=== PATIENT | male | born 1955 | race American Indian/Alaskan Native ===

== ENCOUNTER 2017-02-16 00:27 | Emergency (ER) | payer MEDICARE ==
--- NOTE | 2017-02-16 01:05 | Emergency Department Report ---
HPI - General Chief Complaint: Extremity Injury, Upper Time Seen by Provider: 02/16/17 01:02 - HPI HPI: This is a 61-year-old Afro-[place]ian male presents to the emergency department by EMS from home with complaint of a bleeding dialysis fistula. The patient gets dialysis on Saturday, and Saturday. He had no problem after dialysis on , which she went to, but then woke up tonight in a "pool of blood" with the fistula bleeding. It apparently was shooting blood out and EMS put his arm into a large tourniquet. Patient started complaining of right arm pain, numbness once he got to the emergency department due to the tightness of the tourniquet. His sod cutter is Dr. Beltran. His fistula was done at the [facility] He did not take anything for symptoms prior to presentation. He is not on any blood thinners. ED Past Medical Hx - Past Medical History Previous Medical History?: Yes Additional medical history: Dialysis to right arm - Social History Smoking Status: Never Smoker Substance Use Type: None ED Review of Systems ROS: Stated complaint: SHUNT BUSTED Other details as noted in HPI Comment: All other systems reviewed and negative Constitutional: denies: chills, fever Eyes: denies: eye pain, eye discharge, vision change ENT: denies: ear pain, throat pain Respiratory: denies: cough, shortness of breath, wheezing Cardiovascular: denies: chest pain, palpitations Gastrointestinal: denies: abdominal pain, nausea, diarrhea Genitourinary: denies: urgency, dysuria Musculoskeletal: denies: back pain, joint swelling Skin: denies: rash, lesions Neurological: denies: headache, weakness Physical Exam - Physical Exam Vital Signs: Vital Signs 02/16/17 02/16/17 00:44 00:47 Temperature 98.0 F Pulse Rate 103 H 88 Respiratory 22 16 Rate Blood Pressure 122/84 Blood Pressure 117/81 [Left] O2 Sat by Pulse 100 98 Oximetry Physical Exam: GENERAL: The patient is well-developed well-nourished. HEENT: Normocephalic. Atraumatic. Extraocular motions are intact. Patient has moist mucous membranes. Pupils equal reactive to light bilaterally. NECK: Supple. Trachea is midline. CHEST/LUNGS: Clear to auscultation. There is no respiratory distress noted. HEART/CARDIOVASCULAR: Regular. There is no tachycardia. There is no gallop rub or murmur. ABDOMEN: Abdomen is soft, nontender. Patient has normal bowel sounds. There is no abdominal distention. SKIN: Skin is warm and dry. NEURO: The patient is awake, alert, and oriented. The patient is cooperative. The patient has no focal neurologic deficits. The patient has normal speech. MUSCULOSKELETAL: Patient has tenderness to the right upper extremity but is not reproducible to palpation. There is no palpable right-sided radial pulse but it is found with pencil Doppler. Unable to visualize or palpate the right upper extremity dialysis fistula secondary to multiple tight wrappings and tourniquets. ED Course Vital Signs 02/16/17 02/16/17 00:44 00:47 Temperature 98.0 F Pulse Rate 103 H 88 Respiratory 22 16 Rate Blood Pressure 122/84 Blood Pressure 117/81 [Left] O2 Sat by Pulse 100 98 Oximetry - Reevaluation(s) Reevaluation #1: With the tourniquet and wraps were taken off the patient did have some pulsatile venous blood from the fistula. We cover that with some gauze to stop the bleeding. Once the tourniquet was removed however, the patient received blood flow back to the distal hand and arm. He had a palpable radial pulse, good cap refill and the patient's pain completely resolved. We then put a less intense wrap around the bleeding fistula. 02/16/17 06:07 ED Medical Decision Making - Lab Data Result diagrams: 02/16/17 01:13 02/16/17 01:13 - Medical Decision Making 61-year-old male presents with the complaint of waking up with a bleeding dialysis fistula. EMS put a very tight wrap and tourniquet which did stop the bleeding but cut off the circulation to the distal hand and was causing him pain and we did not have a palpable radial pulse at that time. Once the tourniquet was removed, the patient still did have some bleeding from the fistula but the pain resolved and the pulse was once again palpable and the patient had full range of motion of his hand and arm. We checked some labs and there was no significant coagulopathy or blood thinning. The rest the patient' s labs are mostly unremarkable other than the renal insufficiency but the patient is dialysis dependent. We put another wrap around the arm and watch the patient for another few hours. At that point the fistula was rechecked and there was no further bleeding and has started to clot. The patient was given another dressing with some Surgicel over the area where he was having bleeding. Vital signs stable throughout his ED course. Patient has no residual pain and has shown to be neurovascularly intact. He appears safe for discharge home. He will continue with his dialysis regimen and has been encouraged to follow up as soon as possible with the access Center. He will return to the ER with any return of his bleeding or any acute distress. Critical Care Time: No Critical care attestation.: If time is entered above; I have spent that time in minutes in the direct care of this critically ill patient, excluding procedure time. ED Disposition Clinical Impression: Bleeding from dialysis shunt Qualifiers: Encounter type: initial encounter Qualified Code(s): T82.838A - Hemorrhage due to vascular prosthetic devices, implants and grafts, initial encounter Chronic kidney disease (CKD) Qualifiers: Chronic kidney disease stage: stage 5 Qualified Code(s): N18.5 - Chronic kidney disease, stage 5 Disposition: DISCHARGED TO HOME OR SELFCARE Is pt being admited?: No Condition: Stable Instructions: End-Stage Kidney Disease (ED) Additional Instructions: You were seen here today for bleeding from her dialysis fistula/shunt. It appears to have stopped with pressure. I would keep the area covered until her next dialysis appointment and it is recommended that she follow-up with the access Center. Return to the emergency department with any return of the bleeding or any acute distress. Continue with your normal dialysis regimen. Referrals: DENA SAINI MD [Staff Physician] - [facility] Time of Disposition: 04:14
[2017-02-16 01:32] LABS: Basophils % (Auto) 0.3 % (0.0-1.8); Eosinophils % (Auto) 7.3 % (0.0-4.3); Hematocrit 31.2 % (35.5-45.6); Hemoglobin 10.1 gm/dl (11.8-15.2); Mean Corpuscular HGB Conc 32 % (32-34); Mean Corpuscular Hemoglobin 35 pg (28-32); Mean Corpuscular Volume 107 fl (84-94); Platelet Count 165 K/mm3 (140-440); Red Blood Count 2.92 M/mm3 (3.65-5.03); Red Cell Distribution Width 13.9 % (13.2-15.2); White Blood Count 9.3 K/mm3 (4.5-11.0)
[2017-02-16 01:45] LABS: INR 0.99 (0.87-1.13)
[2017-02-16 01:51] LABS: BUN/Creatinine Ratio 3.77; Calcium 9.5 mg/dL (8.4-10.2); Chloride 92.9 mmol/L (98-107); Potassium 4.3 mmol/L (3.6-5.0)
[2017-02-16 01:58] LABS: Partial Thromboplastin Time 26.1 Sec. (24.2-36.6)
[2017-02-16 04:08] VITALS: BP 121/66
== END 2017-02-16 04:20 | disposition home or self-care (01) ==
LOC: ED 00:27
DX: T82.838A Hemorrhage due to vascular prosthetic devices, implants and grafts, initial encounter (principal); Y84.1 Kidney dialysis as the cause of abnormal reaction of the patient, or of later complication, without mention of misadventure at the time of the procedure; N18.5 Chronic kidney disease, stage 5
CPT/HCPCS: 36415; 80048; 85025; 85610; 85730; 86850; 86900; 86901; 99284

== ENCOUNTER 2017-02-16 08:01 | Inpatient (IN) | payer MEDICARE ==
--- NOTE | 2017-02-16 10:55 | Emergency Department Report ---
Upper Extremity - [facility] Chief Complaint: Extremity Injury, Upper Stated Complaint: RT ARM BLEEDING Time Seen by Provider: 02/16/17 10:09 ED Review of Systems ROS: Stated complaint: RT ARM BLEEDING Other details as noted in HPI ED Past Medical Hx - Past Medical History Previous Medical History?: Yes Hx Hypertension: Yes Hx Diabetes: Yes Hx Renal Disease: Yes (HD [id number]) Additional medical history: Dialysis to right arm, AV graft - Surgical History Past Surgical History?: Yes Additional Surgical History: AV graft to right arm, Colonoscopy - Social History Smoking Status: Never Smoker Substance Use Type: Prescribed - Medications Home Medications: Home Medications Medication Instructions Recorded Confirmed Last Taken Type Aspirin [Adult Low Dose Aspirin EC] 81 mg PO DAILY 02/16/17 02/16/17 02/15/17 History Calcium Acetate 667 mg PO TID 02/16/17 02/16/17 02/15/17 History Cinacalcet [Sensipar] 30 mg PO QDAY 02/16/17 02/16/17 02/15/17 History Sevelamer Carbonate [Renvela] 1,600 mg PO TID 02/16/17 02/16/17 02/15/17 History Sodium Polystyrene [Kionex] 15 gm PO TID 02/16/17 02/16/17 02/15/17 History Vit B Cplx #11/FA/C/Biot/Zn Ox 1 each PO DAILY 02/16/17 02/16/17 02/15/17 History [Dialyvite with Zinc Tablet] Vitamin D3 1 tab PO DAILY 02/16/17 02/16/17 02/15/17 History Upper Extremity Exam - Exam General: Vital signs noted. No distress. Alert and acting appropriately. ED Course Vital Signs 02/16/17 08:04 Temperature 98.2 F Pulse Rate 93 H Respiratory 18 Rate Blood Pressure 104/68 O2 Sat by Pulse 97 Oximetry Critical care attestation.: If time is entered above; I have spent that time in minutes in the direct care of this critically ill patient, excluding procedure time. ED Disposition Condition: Stable Referrals: PRIMARY CARE, [Primary Care Provider] - 3-5 Days
[2017-02-16 11:28] LABS: Basophils % (Auto) 0.6 % (0.0-1.8); Eosinophils % (Auto) 4.2 % (0.0-4.3); Hematocrit 28.2 % (35.5-45.6); Hemoglobin 9.2 gm/dl (11.8-15.2); Mean Corpuscular HGB Conc 32 % (32-34); Mean Corpuscular Hemoglobin 35 pg (28-32); Mean Corpuscular Volume 108 fl (84-94); Platelet Count 151 K/mm3 (140-440); Red Blood Count 2.62 M/mm3 (3.65-5.03); Red Cell Distribution Width 13.9 % (13.2-15.2); White Blood Count 9.5 K/mm3 (4.5-11.0)
[2017-02-16 11:39] LABS: Albumin/Globulin Ratio 1.2 %; BUN/Creatinine Ratio 4.14; Bilirubin,Total 0.3 mg/dL (0.1-1.2); Calcium 10.2 mg/dL (8.4-10.2); Chloride 96.4 mmol/L (98-107); INR 1.01 (0.87-1.13); Total Protein 7.3 g/dL (6.3-8.2)
[2017-02-16 11:40] LABS: Partial Thromboplastin Time 29.6 Sec. (24.2-36.6)
[2017-02-16 11:47] LABS: Potassium 5.5 mmol/L (3.6-5.0)
--- NOTE | 2017-02-16 12:23 | Emergency Department Report ---
ED Upper Extremity Inj HPI - General Chief Complaint: Extremity Injury, Upper Stated Complaint: RT ARM BLEEDING Time Seen by Provider: 02/16/17 10:09 Source: patient Mode of arrival: Ambulatory Limitations: No Limitations - History of Present Illness Initial Comments: 61-year-old male with a past medical history end-stage renal disease on dialysis , diabetes, and hypertension presents to the hospital complaints of pain to his AV dialysis fistula. She was seen early this morning for the same by Dr. Rhodes at approximately 1 AM. Apparently patient woke up and found that he was bleeding and therefore came to the ER. Compression dressing placed then removal with resolution of bleeding and patient was subsequently discharged home to receive his dialysis in the a.m. Patient went to dialysis at once dressing was removed he had pulsatile bleeding once again and therefore sent to the ER. Patient complains of mild dizziness block captain. Had mild shortness of breath earlier which has since resolved. No pain reported. Pt takes ASA daily but denies other anticoagulant use - Related Data Home Medications Medication Instructions Recorded Confirmed Last Taken Aspirin [Adult Low Dose Aspirin EC] 81 mg PO DAILY 02/16/17 02/16/17 02/15/17 Calcium Acetate 667 mg PO TID 02/16/17 02/16/17 02/15/17 Cinacalcet [Sensipar] 30 mg PO QDAY 02/16/17 02/16/17 02/15/17 Sevelamer Carbonate [Renvela] 1,600 mg PO TID 02/16/17 02/16/17 02/15/17 Sodium Polystyrene [Kionex] 15 gm PO TID 02/16/17 02/16/17 02/15/17 Vit B Cplx #11/FA/C/Biot/Zn Ox 1 each PO DAILY 02/16/17 02/16/17 02/15/17 [Dialyvite with Zinc Tablet] Vitamin D3 1 tab PO DAILY 02/16/17 02/16/17 02/15/17 Allergies Allergy/AdvReac Type Severity Reaction Status Date / Time No Known Allergies Allergy Unverified 02/16/17 01:10 ED Review of Systems ROS: Stated complaint: RT ARM BLEEDING Other details as noted in HPI Comment: All other systems reviewed and negative Other: Constitutional: No fevers chills Eyes: No eye pain visual changes ENT: No ear pain or throat pain Neck: Denies pain Respiratory: Denies cough wheezing Cardiovascular: Denies chest pain, palpitations, syncope GI: Denies abdominal pain, nausea, vomiting, diarrhea : Denies dysuria Musculoskeletal: Denies back pain Skin: Denies rash, lesions, erythema Neurologic: Denies headache, numbness, weakness Psychiatric: Denies suicidal ideation, hallucinations ED Past Medical Hx - Past Medical History Previous Medical History?: Yes Hx Hypertension: Yes Hx Diabetes: Yes Hx Renal Disease: Yes (HD [id number]) Additional medical history: Dialysis to right arm, AV graft - Surgical History Past Surgical History?: Yes Additional Surgical History: AV graft to right arm, Colonoscopy - Social History Smoking Status: Never Smoker Substance Use Type: Prescribed - Medications Home Medications: Home Medications Medication Instructions Recorded Confirmed Last Taken Type Aspirin [Adult Low Dose Aspirin EC] 81 mg PO DAILY 02/16/17 02/16/17 02/15/17 History Calcium Acetate 667 mg PO TID 02/16/17 02/16/17 02/15/17 History Cinacalcet [Sensipar] 30 mg PO QDAY 02/16/17 02/16/17 02/15/17 History Sevelamer Carbonate [Renvela] 1,600 mg PO TID 02/16/17 02/16/17 02/15/17 History Sodium Polystyrene [Kionex] 15 gm PO TID 02/16/17 02/16/17 02/15/17 History Vit B Cplx #11/FA/C/Biot/Zn Ox 1 each PO DAILY 02/16/17 02/16/17 02/15/17 History [Dialyvite with Zinc Tablet] Vitamin D3 1 tab PO DAILY 02/16/17 02/16/17 02/15/17 History ED Physical Exam - General Limitations: No Limitations - Other Other exam information: General: No limitations, patient is alert in no acute distress Head exam: Atraumatic, normocephalic Eyes exam: Normal appearance ENT: Moist mucous membrane, normal oropharynx Neck exam: Normal inspection, full range of motion Respiratory exam: Clear to auscultation bilateral, no wheezes, rales, crackles Cardiovascular: Normal rate and rhythm, normal heart sounds Abdomen: Soft, nondistended, and nontender, with normal bowel sounds, no rebound, or guarding Extremity: Full range of motion normal inspection no deformity. Right arm with compressive dressing intact without any signs of active bleeding. 2+ distal radial pulse. Back: Normal Inspection, full range of motion, no tenderness Neurologic: Alert, oriented x3, cranial nerves intact, no motor or sensory deficit Psychiatric: normal affect, normal mood Skin: Warm, dry, intact ED Course Vital Signs 02/16/17 08:04 Temperature 98.2 F Pulse Rate 93 H Respiratory 18 Rate Blood Pressure 104/68 O2 Sat by Pulse 97 Oximetry - Consultations Consultation #1: 02/16/17 11:[address] Arce manager animation vascular surgeon. He agrees with no signs of active bleeding dressing does not need to be removed in the ED. He will arrange for fistula graft in the morning unless patient needs emergent dialysis Consultation #2: 02/16/17 12:[address] Florence red hat engineer. He recommends Kayexalate for hyperkalemia. Will arrange for dialysis once access at ED Medical Decision Making - Lab Data Result diagrams: 02/16/17 11:23 02/16/17 11:23 Lab Results 02/16/17 02/16/17 02/16/17 Range/Units 08:20 11:23 11:23 WBC 9.5 (4.5-11.0) K/mm3 RBC 2.62 L (3.65-5.03) M/mm3 Hgb 9.2 L (11.8-15.2) gm/dl Hct 28.2 L (35.5-45.6) % MCV 108 H (84-94) fl MCH 35 H (28-32) pg MCHC 32 (32-34) % RDW 13.9 (13.2-15.2) % Plt Count 151 (140-440) K/mm3 Lymph % (Auto) 9.8 L (13.4-35.0) % [place] % (Auto) 5.8 (0.0-7.3) % Eos % (Auto) 4.2 (0.0-4.3) % Baso % (Auto) 0.6 (0.0-1.8) % Lymph # 0.9 L (1.2-5.4) K/mm3 [place] # 0.6 (0.0-0.8) K/mm3 Eos # 0.4 (0.0-0.4) K/mm3 Baso # 0.1 (0.0-0.1) K/mm3 Seg Neutrophils % 79.6 H (40.0-70.0) % Seg Neutrophils # 7.5 (1.8-7.7) K/mm3 PT 13.2 (12.2-14.9) Sec. INR 1.01 (0.87-1.13) APTT 29.6 (24.2-36.6) Sec. Sodium (137-145) mmol/L Potassium (3.6-5.0) mmol/L Chloride (98-107) mmol/L Carbon Dioxide (22-30) mmol/L Anion Gap mmol/L BUN (9-20) mg/dL Creatinine (0.8-1.5) mg/dL Estimated GFR ml/min BUN/Creatinine Ratio % Glucose (75-100) mg/dL Calcium (8.4-10.2) mg/dL Total Bilirubin (0.1-1.2) mg/dL AST (5-40) units/L ALT (7-56) units/L Alkaline Phosphatase (35-129) units/L Total Protein (6.3-8.2) g/dL Albumin (3.9-5) g/dL Albumin/Globulin Ratio % Blood Type O POSITIVE Antibody Screen TNR MARTIN Antibody Screen Negative 02/16/17 Range/Units 11:23 WBC (4.5-11.0) K/mm3 RBC (3.65-5.03) M/mm3 Hgb (11.8-15.2) gm/dl Hct (35.5-45.6) % MCV (84-94) fl MCH (28-32) pg MCHC (32-34) % RDW (13.2-15.2) % Plt Count (140-440) K/mm3 Lymph % (Auto) (13.4-35.0) % [place] % (Auto) (0.0-7.3) % Eos % (Auto) (0.0-4.3) % Baso % (Auto) (0.0-1.8) % Lymph # (1.2-5.4) K/mm3 [place] # (0.0-0.8) K/mm3 Eos # (0.0-0.4) K/mm3 Baso # (0.0-0.1) K/mm3 Seg Neutrophils % (40.0-70.0) % Seg Neutrophils # (1.8-7.7) K/mm3 PT (12.2-14.9) Sec. INR (0.87-1.13) APTT (24.2-36.6) Sec. Sodium 139 (137-145) mmol/L Potassium 5.5 H D (3.6-5.0) mmol/L Chloride 96.4 L (98-107) mmol/L Carbon Dioxide 23 (22-30) mmol/L Anion Gap 25 mmol/L BUN 63 H (9-20) mg/dL Creatinine 15.2 H (0.8-1.5) mg/dL Estimated GFR 4 ml/min BUN/Creatinine Ratio 4.14 % Glucose 108 H (75-100) mg/dL Calcium 10.2 (8.4-10.2) mg/dL Total Bilirubin 0.30 (0.1-1.2) mg/dL AST 15 (5-40) units/L ALT 12 (7-56) units/L Alkaline Phosphatase 41 (35-129) units/L Total Protein 7.3 (6.3-8.2) g/dL Albumin 4.0 (3.9-5) g/dL Albumin/Globulin Ratio 1.2 % Blood Type Antibody Screen MARTIN Antibody Screen - Medical Decision Making Patient has fairly stable hemoglobin and does not require blood transfusion. Vital signs stable. No signs of fluid overload. This relates initiated for hyperkalemia. Nephrology and vascular surgery has been consulted. Patient requires admission for fistulogram and subsequent dialysis. - Differential Diagnosis anemia, coagulopathy, hyperkalemia, volume overload, bleeding fistula Critical Care Time: No Critical care attestation.: If time is entered above; I have spent that time in minutes in the direct care of this critically ill patient, excluding procedure time. ED Disposition Clinical Impression: Bleeding from dialysis shunt, ESRD (end stage renal disease) on dialysis, Hyperkalemia Disposition: OP ADMITTED IP TO THIS HOSP Is pt being admited?: Yes Condition: Stable Time of Disposition: 12:22 (Dr Gary/hosp)
--- NOTE | 2017-02-16 12:23 | History and Physical Report ---
History of Present Illness Chief complaint: My arm is bleeding History of present illness: 61 YO Male with ESRD on HD(T,R,Sa), HTN, DM presents to ED for evaluation. Pt states that he has experienced bleeding and pain at his RUE AV fistula site for the past 2 days with worsening symptoms over the past 8 hours. PT awoke from sleep and found that his arm was bleeding and presented to ED for evaluation. At time of evaluation, bleeding had resolved. Bleeding recurred hence the reason for representation. Pt states that bleeding is pulsatile, and associated with dizziness. Pt denies fever, chills, CP, Palpitations, muscle cramping, syncope, NVD, BRBPR, hematemesis, hematuria, or trauma. Pt last dialyzed on , Dry weight is 110kg, dialysis time 4 hours. Past History Past Medical History: diabetes, ESRD, hypertension, renal failure Past Surgical History: Other (RUE AVF, Colonoscopy) Social history: . denies: smoking, alcohol abuse, prescription drug abuse Family history: diabetes, hypertension Medications and Allergies Allergies Allergy/AdvReac Type Severity Reaction Status Date / Time No Known Allergies Allergy Unverified 02/16/17 01:10 Home Medications Medication Instructions Recorded Confirmed Last Taken Type Aspirin [Adult Low Dose Aspirin EC] 81 mg PO DAILY 02/16/17 02/16/17 02/15/17 History Calcium Acetate 667 mg PO TID 02/16/17 02/16/17 02/15/17 History Cinacalcet [Sensipar] 30 mg PO QDAY 02/16/17 02/16/17 02/15/17 History Sevelamer Carbonate [Renvela] 1,600 mg PO TID 02/16/17 02/16/17 02/15/17 History Sodium Polystyrene [Kionex] 15 gm PO TID 02/16/17 02/16/17 02/15/17 History Vit B Cplx #11/FA/C/Biot/Zn Ox 1 each PO DAILY 02/16/17 02/16/17 02/15/17 History [Dialyvite with Zinc Tablet] Vitamin D3 1 tab PO DAILY 02/16/17 02/16/17 02/15/17 History Review of Systems All systems: negative Constitutional: other (bleeding/pain from AVF ) Exam - Constitutional Vitals: Temp Pulse Resp BP Pulse Ox 98.2 F 93 H 18 104/68 97 02/16/17 08:04 02/16/17 08:04 02/16/17 08:04 02/16/17 08:04 02/16/17 08:04 General appearance: Present: no acute distress, well-nourished - EENT Eyes: Present: PERRL ENT: hearing intact, clear oral mucosa - Neck Neck: Present: supple, normal ROM - Respiratory Respiratory effort: normal Respiratory: bilateral: CTA - Cardiovascular Heart Sounds: Present: S1 & S2. Absent: rub, click - Extremities Extremities: pulses symmetrical (RUE dressing CDI, distal pulses intact, and equal bilaterally), No edema Peripheral Pulses: within normal limits - Abdominal General gastrointestinal: Present: soft, non-tender, non-distended, normal bowel sounds Male genitourinary: Present: normal - Integumentary Integumentary: Present: clear, warm, dry - Musculoskeletal Musculoskeletal: gait normal, strength equal bilaterally - Psychiatric Psychiatric: appropriate mood/affect, intact judgment & insight - Neurologic Neurologic: CNII-XII intact, moves all extremities Results - Labs CBC & Chem 7: 02/16/17 11:23 02/16/17 11:23 Labs: Abnormal lab results 02/16/17 02/16/17 Range/Units 11:23 11:23 RBC 2.62 L (3.65-5.03) M/mm3 Hgb 9.2 L (11.8-15.2) gm/dl Hct 28.2 L (35.5-45.6) % MCV 108 H (84-94) fl MCH 35 H (28-32) pg Lymph % (Auto) 9.8 L (13.4-35.0) % Lymph # 0.9 L (1.2-5.4) K/mm3 Seg Neutrophils % 79.6 H (40.0-70.0) % Potassium 5.5 H D (3.6-5.0) mmol/L Chloride 96.4 L (98-107) mmol/L BUN 63 H (9-20) mg/dL Creatinine 15.2 H (0.8-1.5) mg/dL Glucose 108 H (75-100) mg/dL Assessment and Plan - Patient Problems (1) Bleeding from dialysis shunt Current Visit: Yes Status: Acute Qualifiers: Encounter type: E Plan to address problem: IR consulted in ED, Pending fistulagram in AM, (2) Diabetes Current Visit: Yes Status: Acute Qualifiers: Diabetes mellitus type: D Diabetes mellitus complication status: D Diabetes mellitus complication detail: D Diabetic retinopathy severity: D Proliferative retinopathy type: P Diabetes mellitus macular edema: D Diabetes mellitus nitroglycerin supervisor insulin use: D Laterality: L Chronic kidney disease stage: C Plan to address problem: ADA diet, insulin, accu check (3) Metabolic syndrome Current Visit: Yes Status: Acute Plan to address problem: Pt counseled, balanced diet, increased physical activity (4) ESRD (end stage renal disease) on dialysis Current Visit: Yes Status: Acute Plan to address problem: Nephrology consulted in ED, Dialysis as per renal team. (5) Hyperkalemia Current Visit: Yes Status: Acute Plan to address problem: scheduled kayexelate, repeat bmp in am (6) Chronic kidney disease (CKD) Current Visit: No Status: Acute Qualifiers: Chronic kidney disease stage: stage 5 Qualified Code(s): N18.5 - Chronic kidney disease, stage 5 Plan to address problem: Stable, Nephrology consulted, resume home medication. (7) DVT prophylaxis Current Visit: Yes Status: Acute
[2017-02-16] MEDS ORDERED: KIONEX PO ONE (12:32)
[2017-02-16] MEDS ORDERED: DUONEB 0.5 MG-3 MG/3 ML SOLN IH PRN (12:42)
[2017-02-16] MEDS ORDERED: TYLENOL PO PRN (12:42)
[2017-02-16] MEDS ORDERED: ZOFRAN IV PRN (12:42)
[2017-02-16] MEDS ORDERED: PROVENTIL IH PRN (12:46)
[2017-02-16] MEDS ORDERED: KIONEX ONE (13:50)
[2017-02-16] MEDS: KIONEX PO SCH ×2 (13:58→22:15)
--- NOTE | 2017-02-16 16:06 | Admit Criteria Form ---
Admission Criteria Documentation: RENAL FAILURE, CHRONIC Clinical Indications for Admission to Inpatient Care (Place 'X' for any and all applicable criteria): Admission is indicated for ANY ONE of the following (1)(2)(3)(4)(5): [X ]I. Inpatient admission required rather than observation care (Use Renal Failure, Chronic: Observation Care Criteria as appropriate) because of ANY ONE of the following: [ ]a) Volume overload or uremic symptoms (eg, clinically significant pulmonary edema, hypertension, pericarditis, acidosis) too severe for, or not responsive (eg, for over 24 hours) to emergency department or observation care dialysis or treatment regimen (11) [ ]b) Hemodynamic instability that is severe or persistent [ ]c) Respiratory distress that is severe or persistent (11) [X ]d) Clinically significant electrolyte abnormality that requires inpatient care (eg,hyperkalemia with severe ECG findings)[B] [ ]e) Supplement O2 or respiratory therapy for over 24hrs that is performable only in acute inpatient setting [ ]f) Continuous IV infusion of anticoagulation, platelet inhibitor, vasoactive, or Antiarrhythmic medication (15), [ ]g) Pulmonary artery catheter monitoring [ ]h) Temporary pacemaker placement [ ]i) Emergent pericardiocentesis [ ]j) Other condition, treatment or monitoring requiring inpatient admission [ ]II. Unexplained syncope [A] [ ]III. Recurrent seizures [ ]IV. Severe infections not treatable in outpatient setting (eg, peritonitis)(9 ) [ ]V. Cardiac arrhythmias of immediate concern [ ]. Encephalopathy [ ]VII.Bleeding abnormalities (eg, platelet dysfunction) with active (eg, gastrointestinal) bleeding Extended stay beyond goal length of stay may be needed for (3)(4)(35)(36): [ ]a) Continuing uremic complications [ ]b) Comorbidities or complications The original [employer] content created by [employer] has been revised. The portions of the content which have been revised are identified through the use of italic text or in bold, and [facility] has neither reviewed nor approved the modified material. All other unmodified content is copyright [employer] Please see references footnoted in the original [facility] edition 2016 Admission Criteria Met: Yes
--- NOTE | 2017-02-16 16:08 | Consultation ---
History of Present Illness - Reason for Consult Consult date: 02/16/17 bleeding fistula - History of Present Illness Pt with a RUE brachiocephalic fistula placed 7 years ago. No significant interventiopns. Presents with persistant bleeding from 1.5 cm erosion at site of prior buttonhole. Fistula now thrombosed secondary to external compression. Past History Past Medical History: diabetes, ESRD, hypertension, renal failure Past Surgical History: Other (RUE AVF, Colonoscopy) Social history: . denies: smoking, alcohol abuse, prescription drug abuse Family history: diabetes, hypertension Medications and Allergies Allergies Allergy/AdvReac Type Severity Reaction Status Date / Time No Known Allergies Allergy Unverified 02/16/17 01:10 Home Medications Medication Instructions Recorded Confirmed Last Taken Type Aspirin [Adult Low Dose Aspirin EC] 81 mg PO DAILY 02/16/17 02/16/17 02/15/17 History Calcium Acetate 667 mg PO TID 02/16/17 02/16/17 02/15/17 History Cinacalcet [Sensipar] 30 mg PO QDAY 02/16/17 02/16/17 02/15/17 History Sevelamer Carbonate [Renvela] 1,600 mg PO TID 02/16/17 02/16/17 02/15/17 History Sodium Polystyrene [Kionex] 15 gm PO TID 02/16/17 02/16/17 02/15/17 History Vit B Cplx #11/FA/C/Biot/Zn Ox 1 each PO DAILY 02/16/17 02/16/17 02/15/17 History [Dialyvite with Zinc Tablet] Vitamin D3 1 tab PO DAILY 02/16/17 02/16/17 02/15/17 History Active Meds: Active Medications Acetaminophen (Tylenol) 650 mg PO Q4H PRN PRN Reason: Pain MILD(1-3)/Fever >100.5/BUNCH Albuterol (Proventil) 2.5 mg IH Q4HRT PRN PRN Reason: Shortness Of Breath Calcium Acetate (Phoslo) 667 mg PO TID [facility] Cholecalciferol (Vitamin D3) 2,000 unit PO QDAY [facility] Cinacalcet (Sensipar) 30 mg PO QDAY [facility] Multivit/Ca Carb/B Cmplx/FA/Prenat (Renal Caps) 1 cap PO QDAY [facility] Ondansetron HCl (Zofran) 4 mg IV Q8H PRN PRN Reason: N/V unrelieved by Reglan Sevelamer Carbonate (Renvela) 1,600 mg PO TID [facility] Sodium Polystyrene Sulfonate (Kionex) 15 gm PO TID [facility] Last Admin: 02/16/17 13:58 Dose: 15 gm Review of Systems All systems: negative Exam - Constitutional Vitals: Temp Pulse Resp BP Pulse Ox 98.2 F 93 H 18 111/71 100 02/16/17 08:04 02/16/17 08:04 02/16/17 14:01 02/16/17 12:01 02/16/17 14:01 General appearance: Present: no acute distress - EENT Eyes: Present: PERRL, EOM intact ENT: hearing intact - Neck Neck: Present: supple, normal ROM - Respiratory Respiratory effort: normal - Extremities Extremities: abnormal (per HPI) - Abdominal General gastrointestinal: Present: deferred Male genitourinary: Present: deferred - Rectal Rectal Exam: deferred - Psychiatric Psychiatric: appropriate mood/affect, cooperative Results - Labs CBC & Chem 7: 02/16/17 11:23 02/16/17 11:23 Assessment and Plan Pt will need permcath tomorrow and dialysis to follow. He will need a new nursing home dialysis access versus revision.
[2017-02-16] MEDS: PHOSLO PO SCH ×2 (18:45→22:15)
[2017-02-16] MEDS: RENVELA PO SCH ×2 (18:45→22:14)
[2017-02-17] MEDS ORDERED: XYLOCAINE 2% INFILTRATI ONE (09:26)
[2017-02-17] MEDS ORDERED: ANCEF/STERILE WATER 2 GM/20 ML 2 GM/20 ML SYRINGE IV ONE (09:26)
[2017-02-17] MEDS ORDERED: HEPARIN/NS 5000 UNIT/500ML(CATH LAB) 1,000 ML IR ONE (09:26)
[2017-02-17] MEDS ORDERED: NACL 0.9% 250ML 250 ML ONE (09:28)
--- NOTE | 2017-02-17 09:58 | Progress Note ---
Assessment and Plan 61 YO Male with ESRD on HD(T,R,Sa), HTN, DM presents to ED for evaluation. Pt states that he has experienced bleeding and pain at his RUE AV fistula site for the past 2 days with worsening symptoms over the past 8 hours before admission. PT awoke from sleep and found that his arm was bleeding and presented to ED for evaluation. Bleeding from dialysis shunt - Vascular consulted in ED, - Patient is undergoing fistulogram and mechanical thrombectomy as well as surgical closure of his bleeding site. - The patient will be scheduled outpt for placement of an interposition graft next week. Diabetes type 2 - cont insulin, accu check ESRD (end stage renal disease) on dialysis - Nephrology consulted in ED, - Dialysis planned after the procedure today Hyperkalemia - scheduled kayexelate, - K 6.1 today - will give NaHCO3, insulin with D50 - check level after HD DVT prophylaxis - SCD for active bleeding Subjective Date of service: 02/17/17 Interval history: Patient seen and examined at the vascular carpenter labor supervisor. Medical records and medication list reviewed. No acute event overnight noted by the RN. Patient denies any chest pain or difficulty breathing. Discussed plan of care at bedside with patient. Objective - Exam Narrative Exam: GENERAL: well-developed and well-nourished AAM lying on bed appeared to be in no discomfort. HEENT: Normocephalic. Atraumatic. No conjunctival congestion or icterus. Patient has moist mucous membranes. NECK: Supple. Trachea midline. CHEST/LUNGS: Clear to auscultated bilaterally, breathing nonlabored. No wheezes crackles or rhonchi. HEART/CARDIOVASCULAR: Regular in rate and rhythm. S1 and S2 positive. ABDOMEN: Abdomen is soft, nontender. Patient has normal bowel sounds. SKIN: There is no rash. Warm and dry. NEURO: No focal motor deficit. Follows command. MUSCULOSKELETAL: No joint effusion or tenderness. EXTRIMITY: No edema, no cyanosis or clubbing. AV fistula in his right upper arm. PSYCH: Cooperative. - Constitutional Vitals: Vital Signs - 12hr 02/17/17 02/17/17 02/17/17 00:10 07:10 08:17 Temperature 97.7 F 98.1 F Pulse Rate [ 70 From Monitor] Pulse Rate [ 68 Left] Respiratory 18 20 Rate Blood Pressure 112/71 125/72 [Left Arm] O2 Sat by Pulse 99 90 94 Oximetry - Labs CBC & Chem 7: 02/16/17 11:23 02/17/17 11:53 Labs: Abnormal lab results 02/16/17 Range/Units 15:40 POC Glucose 121 H (70-105)
[2017-02-17] MEDS ORDERED: VITAMIN D3 PO SCH (10:00)
[2017-02-17] MEDS ORDERED: NON-FORMULARY (Vit B Cplx #11/Fa/C/Biot/Zn Ox [Dialyvite With Zinc Tablet] 1 EACH) PO SCH (10:00)
[2017-02-17] MEDS: SUBLIMAZE ONE ×2 (10:01→10:24)
[2017-02-17] MEDS: VERSED ONE ×2 (10:01→11:13)
[2017-02-17] MEDS: HEPARIN 10,000 UNITS/10 ML ONE ×2 (10:24→11:10)
--- NOTE | 2017-02-17 11:36 | Operative Report ---
Operative Report Operative Report: EXAM: RIGHT UPPER EXTREMITY FISTULOGRAM, DECLOT, VENOPLASTY CLINICAL INDICATION: PATIENT WITH THROMBOSED RIGHT UPPER EXTREMITY FISTULA WITH BLEEDING FROM SKIN EXCORIATION AT SITE OF PRIOR BUTTONHOLE DATE: 02/17/2017 PROCEDURE: Following an explanation of the risks, benefits and alternatives; written informed consent was obtained. The patient was brought to the injury graphic suite and placed in supine position on the examination table. Initial evaluation of his right upper arm brachycephalic fistula demonstrated thrombus throughout the fistula. No bleeding was identified at the start of the examination. Patient's right arm was prepped and draped in the usual sterile fashion. 1% lidocaine was used for anesthesia. Accessed towards the venous outflow was obtained using a 7 cm 21-gauge needle under ultrasound guidance. A 0.018 guidewire was advanced centrally and the needle removed. A micro-sheath was then placed in the 0.018 guidewire was exchanged for a 0.035 guidewire was exchanged for a 7 [place] vascular sheath. With the aid of a 4 [place] vertebral catheter, as the 0.035 guidewire was advanced centrally. There appears to be cardiac dysfunction with reflux from the right atrium involving the central veins. Thrombus is present extending from the cephalic vein distally. Venoplasty for thrombus maceration was performed from the central veins to the sheath insertion site using an 8 mm balloon. The vertebral catheter was again advanced over the guidewire and pullback venography performed to the sheath. As demonstrated residual thrombus throughout the fistula. Mechanical thrombectomy was then performed using a Trerotola mechanical thrombectomy device through the venous sheath to the shoulder. Accessed towards the arterial anastomosis was obtained in a similar fashion as above and a 6 [place] sheath directed towards the arterial anastomosis. A 4 [place] vertebral catheter and 0.035 guidewire were then advanced through the arterial anastomosis entered into the brachial artery. Contrast injected through the vertebral catheter demonstrated thrombus filling the fistula from the AV anastomosis to the sheath insertion site. The graft was then swept using a 5.5 [place] Kuldeep balloon over the guidewire. At this point, the fistula regained flow and the patient began to bleed at the site of the skin excoriation. Balloon tamp an odd was performed sequentially using an 8 mm, 10 mm and 12 mm balloon without cessation of flow. The 12 mm balloon insufflated to slow the bleeding, the skin excoriation was approximated using 2-0 interrupted Ethilon suture. At this point, the bleeding stopped. Additional mechanical thrombectomy was then performed through the venous sheath. Venography demonstrated no stenosis at the her chart arterial anastomosis. There is 60-70% stenosis in the distal cephalic vein. Angioplasty of this stenosis was then performed using the 8 mm balloon insufflated 14 juvenal for 30 seconds. Post angioplasty imaging demonstrated reduction of the stenosis to 20%. At this point, brisk flow in a palpable thrill is present throughout the fistula. Both she's were removed and hemostasis achieved using 3-0 Vicryl suture. Dermabond was applied to the sheath insertion sites as well as the site of the skin excoriation. The patient tolerated the procedure well. There were no immediate post procedure competitions. Conscious sedation was performed under the guidance of radiologic nursing. Continuous cardiopulmonary monitoring was utilized. IMPRESSION: 1) Right upper extremity fistulogram demonstrating thrombus throughout the patient's right upper arm fistula. 60-70% stenosis within the distal cephalic vein. 2) Mechanical thrombectomy of the fistula using Trerotola mechanical thrombectomy device. 3) Venoplasty of the venous outflow stenosis as described. 4) The patient will be scheduled for placement of an interposition graft
--- NOTE | 2017-02-17 11:40 | Progress Note ---
Assessment and Plan Patient underwent fistulogram and mechanical thrombectomy as well as surgical closure of his bleeding site. The patient will be scheduled by our office for placement of an interposition graft at some point this week. Following dialysis , the patient may be discharged home from a vascular point of view. Subjective Date of service: 02/17/17 Principal diagnosis: Bleeding fistula Interval history: The patient was brought down today for fistulogram, declot and suture repair of the site of bleeding. He did well during the procedure and is fistula may be used for dialysis. Patient has no significant complaints. Objective - Constitutional Vitals: Vital Signs - 12hr 02/17/17 02/17/17 02/17/17 00:10 07:10 08:17 Temperature 97.7 F 98.1 F Pulse Rate [ 70 From Monitor] Pulse Rate [ 68 Left] Respiratory 18 20 Rate Blood Pressure 112/71 125/72 [Left Arm] O2 Sat by Pulse 99 90 94 Oximetry General appearance: Present: no acute distress - EENT Eyes: PERRL ENT: hearing intact - Neck Neck: supple, normal ROM - Respiratory Respiratory effort: normal - Breasts Breasts: deferred - Cardiovascular Rhythm: regular Extremities: no ischemia - Gastrointestinal General gastrointestinal: Present: deferred Rectal Exam: deferred - Genitourinary Male genitourinary: deferred - Psychiatric Psychiatric: appropriate mood/affect, cooperative - Labs CBC & Chem 7: 02/16/17 11:23 02/16/17 11:23 Labs: Abnormal lab results 02/16/17 Range/Units 15:40 POC Glucose 121 H (70-105)
--- NOTE | 2017-02-17 12:56 | Consultation ---
History of Present Illness - Reason for Consult Consult date: 02/17/17 end stage renal disease, hyperkalemia Requesting physician: REYES TENA - History of Present Illness 61 YO Male with ESRD on HD(T,R,Sa), HTN, DM presents to ED for evaluation. Pt states that he has experienced bleeding and pain at his RUE AV fistula site for the past 2 days with worsening symptoms over the past 8 hours. PT awoke from sleep yesterday and found that his arm was bleeding and presented to ED for evaluation. At time of evaluation, bleeding had resolved. Bleeding recurred hence the reason for representation. Pt states that bleeding is pulsatile, and associated with dizziness. Pt denies fever, chills, CP, Palpitations, muscle cramping, syncope, NVD, BRBPR, hematemesis, hematuria, or trauma. Pt last dialyzed on , Dry weight is 110kg, dialysis time 4 hours. His potassium was noted to be 5.5 in the emergency room yesterday and he was given Kayexalate. Patient just returned from [employer]. He had angiogram and angioplasty done to his AV fistula. Patient denies any shortness of breath at this time Past History Past Medical History: diabetes, ESRD, hypertension, renal failure Past Surgical History: Other (RUE AVF, Colonoscopy) Social history: . denies: smoking, alcohol abuse, prescription drug abuse Family history: diabetes, hypertension Medications and Allergies Allergies Allergy/AdvReac Type Severity Reaction Status Date / Time No Known Allergies Allergy Unverified 02/16/17 01:10 Home Medications Medication Instructions Recorded Confirmed Last Taken Type Aspirin [Adult Low Dose Aspirin EC] 81 mg PO DAILY 02/16/17 02/16/17 02/15/17 History Calcium Acetate 667 mg PO TID 02/16/17 02/16/17 02/15/17 History Cinacalcet [Sensipar] 30 mg PO QDAY 02/16/17 02/16/17 02/15/17 History Sevelamer Carbonate [Renvela] 1,600 mg PO TID 02/16/17 02/16/17 02/15/17 History Sodium Polystyrene [Kionex] 15 gm PO TID 02/16/17 02/16/17 02/15/17 History Vit B Cplx #11/FA/C/Biot/Zn Ox 1 each PO DAILY 02/16/17 02/16/17 02/15/17 History [Dialyvite with Zinc Tablet] Vitamin D3 1 tab PO DAILY 02/16/17 02/16/17 02/15/17 History Active Meds: Active Medications Acetaminophen (Tylenol) 650 mg PO Q4H PRN PRN Reason: Pain MILD(1-3)/Fever >100.5/BUNCH Albuterol (Proventil) 2.5 mg IH Q4HRT PRN PRN Reason: Shortness Of Breath Calcium Acetate (Phoslo) 667 mg PO TID [facility] Last Admin: 02/16/17 22:15 Dose: 667 mg Cholecalciferol (Vitamin D3) 2,000 unit PO QDAY [facility] Cinacalcet (Sensipar) 30 mg PO QDAY [facility] Multivit/Ca Carb/B Cmplx/FA/Prenat (Renal Caps) 1 cap PO QDAY [facility] Ondansetron HCl (Zofran) 4 mg IV Q8H PRN PRN Reason: N/V unrelieved by Joanne Sevelamer Carbonate (Renvela) 1,600 mg PO TID [facility] Last Admin: 02/16/17 22:14 Dose: 1,600 mg Sodium Polystyrene Sulfonate (Kionex) 15 gm PO TID [facility] Last Admin: 02/16/17 22:15 Dose: 15 gm Review of Systems All systems: negative (negative except as noted above) Exam - Vital Signs Vital signs: Vital Signs Temp Pulse Resp BP Pulse Ox 98.2 F 93 H 18 104/68 97 02/16/17 08:04 02/16/17 08:04 02/16/17 08:04 02/16/17 08:04 02/16/17 08:04 - General Appearance General appearance: well-developed, well-nourished, appears stated age EENT: PERRL, mucous membranes moist Neck: Present: neck supple, trachea midline. Absent: JVD/HJR, Masses Respiratory: Clear to Ascultation Heart: regular, normal heart rate Gastrointestinal: Present: normal, normoactive bowel sounds Integumentary: no rash, other (AV fistula in his right upper arm. Good bruit and thrill) Results - Lab Results 02/16/17 11:23 02/16/17 11:23 Most recent lab results Calcium 10.2 mg/dL (8.4-10.2) 02/16/17 11:23 Assessment and Plan Impression * Malfunctioning dialysis access * Hyperkalemia * End-stage renal disease on maintenance hemodialysis * History of hypertension * Anemia secondary to ESRD Recommendations * Patient is status post angiogram and surgical thrombectomy. * Shall arrange for hemodialysis today * Adjust diet and meds for ESRD state * No IV, BP or venipuncture in his access arm * Procrit with dialysis * Binders with diet * Patient may be discharged after dialysis today * Thank you very much for the consultation. Shall follow along with you
[2017-02-17] MEDS ORDERED: PROCRIT IV PRN (12:58)
[2017-02-17] MEDS ORDERED: NACL 0.9% 100 ML IV PRN (12:58)
[2017-02-17] MEDS: PHOSLO PO SCH ×3 (13:14→20:22)
[2017-02-17] MEDS: KIONEX PO SCH ×3 (13:14→20:15)
[2017-02-17] MEDS: RENVELA PO SCH ×3 (13:14→20:22)
[2017-02-17] MEDS: Renal Caps PO SCH (13:14)
[2017-02-17] MEDS: VITAMIN D3 PO SCH (13:15)
[2017-02-17] MEDS: SENSIPAR PO SCH (13:15)
[2017-02-17 15:15] LABS: BUN/Creatinine Ratio 4.19; Calcium 9.7 mg/dL (8.4-10.2); Chloride 92.3 mmol/L (98-107)
[2017-02-17 15:23] LABS: Potassium 6.1 mmol/L (3.6-5.0)
[2017-02-17] MEDS ORDERED: D50W (25GM) IV ONE (15:34)
[2017-02-17] MEDS ORDERED: NACL 0.9 (PRIMING MACHINE ONLY DIALYSIS) MC ONE (16:09)
[2017-02-17] MEDS ORDERED: SODIUM BICARBONATE IV ONE (17:00)
[2017-02-18 04:40] LABS: Basophils % (Auto) 0.6 % (0.0-1.8); Eosinophils % (Auto) 6.9 % (0.0-4.3); Hemoglobin 6.5 gm/dl (11.8-15.2); Mean Corpuscular HGB Conc 33 % (32-34); Mean Corpuscular Hemoglobin 35 pg (28-32); Mean Corpuscular Volume 106 fl (84-94); Platelet Count 125 K/mm3 (140-440); Red Blood Count 1.85 M/mm3 (3.65-5.03)
[2017-02-18 04:57] LABS: BUN/Creatinine Ratio 3.11; Calcium 8.1 mg/dL (8.4-10.2); Chloride 95.5 mmol/L (98-107); Potassium 4.4 mmol/L (3.6-5.0)
[2017-02-18 05:14] LABS: Hematocrit 19.7 % (35.5-45.6)
[2017-02-18 07:08] LABS: Hematocrit 23.2 % (35.5-45.6); Hemoglobin 7.6 gm/dl (11.8-15.2)
[2017-02-18] MEDS: KIONEX PO SCH ×2 (08:24→13:13)
[2017-02-18] MEDS: PHOSLO PO SCH ×3 (08:24→16:44)
[2017-02-18] MEDS: RENVELA PO SCH ×2 (08:24→13:13)
--- NOTE | 2017-02-18 09:05 | Progress Note ---
Assessment and Plan Impression * Malfunctioning dialysis access --Fistulogram and mechanical thrombectomy as well as surgical closure of his bleeding site 02/17 * Anemia secondary to acute blood loss - symptomatic * Hyperkalemia * End-stage renal disease on maintenance hemodialysis * History of hypertension Recommendations * Patient is s/p fistulogram and mechanical thrombectomy as well as surgical closure of his bleeding site; he is s/p dialysis yesterday * As patient c/o dizziness with standing in setting of anemia due to acute blood loss, will transfuse 1u pRBC prior to d/c * Resume TTS schedule tomorrow * Renal diet Subjective Date of service: 02/18/17 Principal diagnosis: Bleeding fistula Interval history: Patient complains of dizziness with standing. Admitted with active bleed from AV access. Objective - Vital Signs Vital signs: Vital Signs - 12hr 02/18/17 02/18/17 00:00 07:00 Temperature 98.2 F 98.5 F Pulse Rate [ 92 H Left] Pulse Rate [ 89 Right Radial] Respiratory 18 20 Rate Blood Pressure 89/54 106/57 [Left Arm] O2 Sat by Pulse 98 100 Oximetry - General Appearance General appearance: well-developed, well-nourished EENT: ATNC Respiratory: Present: Clear to Ascultation Cardiology: regular, S1S2 Gastrointestinal: normal, no tenderness, no distended Integumentary: no rash Musculoskeletal: other (no edema) Psychiatric: cooperative - Lab 02/18/17 05:34 02/18/17 03:50 Most recent lab results Calcium 8.1 mg/dL (8.4-10.2) L D 02/18/17 03:50
--- NOTE | 2017-02-18 09:20 | Discharge Summary ---
Providers - Providers Date of Admission: 02/16/17 12:42 Date of discharge: 02/18/17 Attending physician: JACOBY RAMIREZ Primary care physician: PHOTOGRAPHIC AIDE Hospitalization Condition: Stable Hospital course: 61 YO Male with ESRD on HD(T,R,Sa), HTN, DM presents to ED for evaluation. Pt states that he has experienced bleeding and pain at his RUE AV fistula site for the past 2 days with worsening symptoms over the past 8 hours before admission. PT awoke from sleep and found that his arm was bleeding and presented to ED for evaluation. Discharge Diagnosis and management: Bleeding from dialysis shunt - Vascular consulted in ED, - Patient undergonefistulogram and mechanical thrombectomy as well as surgical closure of his bleeding site. - The patient will be scheduled outpt for placement of an interposition graft next week. Diabetes type 2 - cont insulin, accu check ESRD (end stage renal disease) on dialysis - Nephrology consulted in ED, - Dialysis planned after the procedure today Hyperkalemia - scheduled kayexelate, - K was 6.1 s/p given kayexalate NaHCO3, insulin with D50 - Improved after HD Anemia - due to acute bleeding, he also has underlying anemia of CD DVT prophylaxis - SCD for active bleeding Disposition: DISCHARGED TO HOME OR SELFCARE Time spent for discharge: 32 minutes Core Measure Documentation - Palliative Care Palliative Care/ Comfort Measures: Not Applicable - Core Measures Any of the following diagnoses?: none Exam - Physical Exam Narrative exam: GENERAL: well-developed and well-nourished AAM lying on bed appeared to be in no discomfort. HEENT: Normocephalic. Atraumatic. No conjunctival congestion or icterus. Patient has moist mucous membranes. NECK: Supple. Trachea midline. CHEST/LUNGS: Clear to auscultated bilaterally, breathing nonlabored. No wheezes crackles or rhonchi. HEART/CARDIOVASCULAR: Regular in rate and rhythm. S1 and S2 positive. ABDOMEN: Abdomen is soft, nontender. Patient has normal bowel sounds. SKIN: There is no rash. Warm and dry. NEURO: No focal motor deficit. Follows command. MUSCULOSKELETAL: No joint effusion or tenderness. EXTRIMITY: No edema, no cyanosis or clubbing. AV fistula in his right upper arm. PSYCH: Cooperative. - Constitutional Vitals: Temp Pulse Resp BP Pulse Ox 98.5 F 89 20 106/57 100 02/18/17 07:00 02/18/17 07:00 02/18/17 07:00 02/18/17 07:00 02/18/17 07:00 Plan Activity: advance as tolerated Weight Bearing Status: Non-Weight Bearing Diet: renal Follow up with: PRIMARY CAREMD [Primary Care Provider] - 7 Days
[2017-02-18] MEDS: VITAMIN D3 PO SCH (10:04)
[2017-02-18] MEDS: Renal Caps PO SCH (10:04)
[2017-02-18] MEDS ORDERED: NACL 0.9% 500 ML 500 ML IV NR (11:00)
[2017-02-18] MEDS: SENSIPAR PO SCH (11:36)
[2017-02-18 15:55] VITALS: BP 105/53
[2017-02-18] MEDS ORDERED: RENVELA PO SCH (17:30)
--- NOTE | 2017-02-18 18:06 | Event Note ---
Date: 02/18/17 Patient status post intervention for bleeding right upper extremity AV access. Venous outflow balloon angioplasty was completed with primary repair of AV access. Patient will need revision of his AV access with interposition graft. Discharge orders have already been written. He should follow up with our office to schedule a prompt revision to his AV access. He will need a temporary permacath to use for HD access while his inter-position graft heals. Discussed in detail with the patient. He states understanding and agrees to comply.
[2017-02-18] MEDS ORDERED: SENSIPAR PO SCH (22:00)
--- NOTE | 2017-02-19 10:04 | Vascular Lab Report ---
Upper extremity vein mapping Reason for exam: Preoperative evaluation for hemodialysis access Comments: On the right, the cephalic vein is atretic and not visualized. The basilic vein is atretic and not visualized. The brachial and radial arteries are not visualized On the left, the cephalic vein is atretic and not visualized. The basilic vein is atretic and not visualized. The brachial and radial arteries are not visualized Impression: Both cephalic veins are not suitable for use as AV access sites. Both basilic veins are not suitable for use as AV access sites.
== END 2017-02-18 19:20 | disposition home or self-care (01) | DRG 252 ==
LOC: ED 08:01 → 3A 12:42
PROVIDERS: ADMIT Internal Medicine; ATTEND Internal Medicine
PROC: 057D3ZZ Dilation of Right Cephalic Vein, Percutaneous Approach (ICD-10-PCS; principal; 2017-02-17)
PROC: 05CD3ZZ Extirpation of Matter from Right Cephalic Vein, Percutaneous Approach (ICD-10-PCS; principal; 2017-02-17)
PROC: B51W1ZZ Fluoroscopy of Dialysis Shunt/Fistula using Low Osmolar Contrast (ICD-10-PCS; principal; 2017-02-17)
PROC: 5A1D00Z (ICD-10-PCS; 2017-02-17)
PROC: 30233N1 Transfusion of Nonautologous Red Blood Cells into Peripheral Vein, Percutaneous Approach (ICD-10-PCS; 2017-02-18)
DX: T82.838A Hemorrhage due to vascular prosthetic devices, implants and grafts, initial encounter (principal); N18.6 End stage renal disease; D62 Acute posthemorrhagic anemia; I12.0 Hypertensive chronic kidney disease with stage 5 chronic kidney disease or end stage renal disease; E87.5 Hyperkalemia; E11.22 Type 2 diabetes mellitus with diabetic chronic kidney disease; E88.81 Metabolic syndrome and other insulin resistance; D63.1 Anemia in chronic kidney disease; Z99.2 Dependence on renal dialysis; Z82.49 Family history of ischemic heart disease and other diseases of the circulatory system; Z83.3 Family history of diabetes mellitus
CPT/HCPCS: 36415; 36905; 80048; 80053; 82962; 85014; 85018; 85025; 85610; 85730; 86850; 86900; 86901; 86920; C1725; C1751; C1757; C1769; C1894; J0690; J0885; J1644; J2250; J3010; J7030; J7040; J7050; P9016; Q9967

== ENCOUNTER 2017-02-22 06:14 | Day surgery (SDC) | payer MEDICARE ==
[~2017-02-22 06:14] MED LIST: ANCEF/STERILE WATER 2 GM/20 ML 2 GM/20 ML SYRINGE IV NR; NACL 0.9% 1000 ML 1,000 ML IV SCH
--- NOTE | 2017-02-22 08:32 | Anesthesia Day of Surgery ---
Anesthesia Day of Surgery - Day of Surgery Patient Examined: Yes Patient H&P Reviewed: Yes Patient is NPO: Yes
--- NOTE | 2017-02-22 08:34 | Anesthesia Consultation ---
Anesthesia Consult and Med Hx Date of service: 02/22/17 - Airway Anesthetic Teeth Evaluation: Good ROM Head & Neck: Inadequate (SMALL mouth opening) Mental/Hyoid Distance: Inadequate Mallampati Class: Class III Intubation Access Assessment: Possibly Difficult - Pulmonary Exam CTA: Yes (blbs clear) - Cardiac Exam Cardiac Exam: RRR - Pre-Operative Health Status ASA Pre-Surgery Classification: ASA4 Proposed Anesthetic Plan: General - Pulmonary Hx Asthma: No Hx Pneumonia: No - Cardiovascular System Hx Hypertension: Yes (not on meds per MD at present) - Central Nervous System Hx Psychiatric Problems: No - Endocrine Hx Renal Disease: Yes (HD [id number]) Hx End Stage Renal Disease: Yes - Hematic Hx Anemia: No Hx Sickle Cell Disease: No - Other Systems Hx Cancer: No
[2017-02-22] MEDS ORDERED: PEPCID PO NR (09:00)
[2017-02-22] MEDS ORDERED: VERSED IV NR (09:00)
[2017-02-22] MEDS ORDERED: MARCAINE 0.5% 30 ML INFILTRATI ONE (09:48)
[2017-02-22] MEDS ORDERED: HEPARIN ONE (09:48)
[2017-02-22] MEDS ORDERED: DILAUDID ONE (09:49)
[2017-02-22] MEDS ORDERED: DIPRIVAN 10 MG/ML IV ONE ×2 (09:49→10:07)
[2017-02-22] MEDS ORDERED: HEPARIN 10,000 UNITS/10 ML ONE (09:49)
[2017-02-22] MEDS ORDERED: NACL 0.9% 500 ML 500 ML ONE (09:49)
[2017-02-22] MEDS ORDERED: XYLOCAINE MPF 2% ONE (09:52)
[2017-02-22] MEDS ORDERED: ZOFRAN ONE (11:08)
[2017-02-22] MEDS ORDERED: NEO SYNEPHRINE ONE (11:17)
[2017-02-22] MEDS ORDERED: NACL 0.9% 100 ML ONE (11:17)
[2017-02-22] MEDS ORDERED: HEPARIN 10,000 UNITS/10 ML IV ONE (11:23)
[2017-02-22] MEDS ORDERED: NACL 0.9% IR ONE (11:23)
[2017-02-22] MEDS ORDERED: HEPARIN IV ONE (11:24)
[2017-02-22] MEDS ORDERED: MARCAINE 0.5% INFILTRATI ONE ×2 (11:24)
[2017-02-22] MEDS ORDERED: NACL 0.9% 500 ML IV ONE (11:24)
[2017-02-22] MEDS ORDERED: ePHEDrine SULFATE ONE (11:25)
--- NOTE | 2017-02-22 12:07 | Short Stay Summary ---
Short Stay Documentation Date of service: 02/22/17 Narrative H&P: See H&P - History H&P: obtained from office - Allergies and Medications Current Medications: Allergies No Known Allergies Allergy (Unverified 02/16/17 01:10) Home Medications Medication Instructions Recorded Confirmed Last Taken Type Aspirin [Adult Low Dose Aspirin EC] 81 mg PO DAILY 02/16/17 02/22/17 02/21/17 09 :00 History Calcium Acetate 667 mg PO TID 02/16/17 02/22/17 02/21/17 20:00 History Cinacalcet [Sensipar] 30 mg PO QDAY 02/16/17 02/22/17 02/21/17 09:00 History Sevelamer Carbonate [Renvela] 1,600 mg PO TID 02/16/17 02/22/17 02/21/17 20:00 History Sodium Polystyrene [Kionex] 15 gm PO TID 02/16/17 02/22/17 02/21/17 09:00 History Vit B Cplx #11/FA/C/Biot/Zn Ox 1 each PO DAILY 02/16/17 02/22/17 02/21/17 09:00 History [Dialyvite with Zinc Tablet] Vitamin D3 1 tab PO DAILY 02/16/17 02/22/17 02/21/17 09:00 History Active Medications Famotidine (Pepcid) 20 mg PO PREOP NR Stop: 02/22/17 20:00 Last Admin: 02/22/17 09:04 Dose: 20 mg Cefazolin Sodium (Ancef/Sterile Water 2 Gm/20 Ml) 2 gm in 20 mls @ 80 mls/hr IV PREOP NR PRN Reason: Protocol Stop: 02/22/17 23:59 Sodium Chloride (Nacl 0.9% 1000 Ml) 1,000 mls @ 42 mls/hr IV DIRECT EDILSON Stop: 02/22/17 23:59 Last Admin: 02/22/17 09:03 Dose: 42 mls/hr Midazolam HCl (Versed) 2 mg IV PREOP NR Stop: 02/22/17 23:59 Last Admin: 02/22/17 09:04 Dose: 2 mg - Brief post op/procedure progress note Date of procedure: 02/22/17 Pre-op diagnosis: Complications of Dialysis Access Post-op diagnosis: same Procedure: 1. Ultrasound-Guided Access Right Internal Jugular Vein 2. Placement of 23 cm Bard GlidePath Permacath 3. Radiologic Supervision with Interpretation 4. Revision of Right Arm Arteriovenous Fistula with Interposition 8 mm Bovine Graft Anesthesia: ARTEMIO Surgeon: ESTEBAN BOX Estimated blood loss: minimal Pathology: none Condition: stable - Disposition Condition at discharge: Good Disposition: DISCHARGED TO HOME OR SELFCARE Short Stay Discharge Plan Activity: other (no heavy lifting with right arm) Wound: open to air, keep clean and dry, other (okay to wash the right arm wound with soap and water but do not soak in water do not get permacath with) Follow up with: ESTEBAN BOX MD [Staff Physician] - 14 Days Prescriptions: HYDROcodone/APAP 7.5-325 [Holden 7.5/325] 1 each PO Q6HR PRN #60 tablet PRN Reason: Pain
[2017-02-22] MEDS ORDERED: NACL ONE (12:51)
[2017-02-22] MEDS ORDERED: RIFADIN ONE (12:51)
--- NOTE | 2017-02-22 12:58 | Post Anesthesia Evaluation ---
- Post Anesthesia Evaluation Patient Participated: Yes Airway Patent: Yes Stable Respiratory Function: Yes Nausea/Vomiting: No Temp > 96.8F: Yes Pain Manageable: Yes Adequeate Hydration: Yes Anesthesia Complications: No Block Receding Appropriately: Not Applicable Patient on Ventilator: No
[2017-02-22] MEDS ORDERED: NORCO 7.5/325 PO PRN (13:06)
--- NOTE | 2017-02-22 15:24 | Fluoroscopy Report ---
Single fluoroscopic image of the body of the chest: History: Complication AV fistula. Findings: Tip of the large bore venous catheter is in lower superior vena cava. Impression: Stable large bore venous catheter.
[2017-02-22 16:39] VITALS: BP 118/66
--- NOTE | 2017-02-22 16:56 | Admit Criteria Form ---
Admission Criteria Documentation: AMBULATORY SURGERY EXCEPTION CRITERIA Ambulatory Surgery Exception Criteria ( Place 'X' for any and all applicable criteria): Surgery or procedure performed on ambulatory basis may require inpatient stay for[A] ANY ONE of the following(1)(2)(3)(4)(5)(6)(7)(8)(9): [X] I. A preoperative situation, condition, or finding that warrants inpatient stay as indicated by ANY ONE of the following: [] a) Inpatient care needed because of severity of a disease or condition rather than the surgery (eg, severe cardiac or respiratory disease, severe infection) (15) (16 ) (17) (18) [] b) Emergent procedure (eg, angioplasty for acute ischemia)(19) [] c) Complex surgical approach or situation as indicated by ANY ONE of the following(3): [] i) Open approach needed instead of usual endoscopic, transcatheter, or other less invasive procedure [] ii) Difficult approach because of previous operation [] iii) Airway monitoring required after open neck procedures(20)(21) [] iv) Large mass requiring unusually extensive dissection [] v) Additional complicating feature requiring inpatient care (eg, drain management)(22(23): [X] d) Major surgery in a pt with high anesthetic risk as indicated by ANY ONE of the following (2)(3)(5)(7)(8): [X] i) ASA risk class III or higher (severe systemic disease impairing function) [D] [] ii) Advanced age (eg, older than 85 years)(14)(24) [] iii) Symptomatic heart failure(25) [] iv) Symptomatic asthma or COPD(8)(21) [] v) Morbid obesity with hemodynamic or respiratory problems(20)( 21)(26)(27) [] vi) Obstructive sleep apnea(20)(21) [] vii) Former premature infants who are younger than 60 weeks [] viii) High risk for severe postoperative abnormalities (eg, severe postoperative hypocalcemia after parathyroidectomy for severe hyperparathyroidism)(27)( 28) [] ix) Unstable angina(25) [] e) Drug-related risk requiring inpatient stay as indicated by ANY ONE of the following(5)(10)(14)(32)(33) [] i) Procedure requires discontinuing drugs or other therapy (eg , antiarrhythmic medication, antiseizure medication), which necessitates inpatient observation or treatment.(18)(31) [] ii) Major surgery and high risk drug use as indicated by ANY ONE of the following: [] 1) Active abuse of cocaine or similar drug [] 2) Monoamine oxidase inhibitor use [] 3) Other drug identified as posing risk [] f) Inadequate outpatient care situation as indicated by ANY ONE of the following(5)(10)(14)(32)(33) [] i) Patient lives remote from medical facility and procedure has urgent complication potential, and temporary nearby residence cannot be arranged [] ii) Patient will have postprocedure incapacitation and inadequate assistance at home, or alternative level of care cannot be arranged. [] iii) Patient will have long general anesthesia or procedure side effect resolution time, and competent person to stay with patient on first postoperative night at home or alternative level of care cannot be arranged. []iv) Other inadequate outpatient situation that cannot be handled by other means [] II. A perioperative event, condition, or finding that warrants inpatient stay as indicated by ANY ONE of the following (1)(2)(3): [] a) Inadequate physiologic recovery: cardiovascular, respiratory, or hemodynamic status not normal or near preoperative baseline(18) [] b) Hemodynamic instability [] c) Patient not alert with near normal or baseline mental status [] d) Temperature not normal or as expected and not appropriate for outpatient treatment of condition [] e) Ambulatory or appropriate activity level status not yet achieved post procedure [E](34)(35)(36) [] f) Operative site not appropriate (eg, unexpected or excessive drainage or bleeding) [] g) Postoperative effects not resolved or adequately managed (eg, significant pain or vomiting not appropriate for outpatient or next level of care)(10)(12) [] h) Complicating features requiring inpatient care as indicated by ANY ONE of the following(37): [] i) Severe complications of procedure (eg, bowel injury, airway compromise, vascular injury,severe hemorrhage) [] ii) Extensive (eg, dissection far beyond usual scope of procedure ) or prolonged (eg, 120 minutes beyond usual) surgery needed requiring inpatient postoperative care [] iii) Conversion to an open or complex procedure that requires inpatient care (eg, open vs laparoscopic cholecystectomy, abdominal vs vaginal hysterectomy)(38) [] iv) Comorbid condition or test result identified during or post procedure that requires inpatient care (7) [] v) Malignant hyperthermia(30) [] vi) Other complicating feature requiring inpatient care(22)(23) Inpatient stay may be needed until ALL of the following are present (1)(2)(3)(4) (5)(6)(10)(14)(33)(40): []a) Physiologic recovery: cardiovascular, respiratory, and hemodynamic status normal or near preoperative baseline []b) Hemodynamic stability []c) Patient alert, with near normal or baseline mental status []d) Temperature appropriate: patient afebrile or temperature appropriate for outpt treatment of condition []e) Activity level appropriate: ambulatory or appropriate activity level post procedure []f) Operative site appropriate as indicated by ALL of the following: []i) Site dry or with expected drainage []ii) Any blood noted is as expected for procedure. []g) Postoperative effects resolved or managed as indicated by ALL of the following: []i) Pain management appropriate for outpatient (or next level of) care(10) []ii) Minimal nausea and vomiting: if present, successfully treated with oral medication(12) []iii) Headache, dizziness, or drowsiness (if present) are mild. []h) Voiding status acceptable as indicated by ANY ONE of the following: []i) Voiding spontaneously []ii) No voiding but instructions given for follow-up in 6 to 8 hours []iii) Urinary catheter in place, and instructions given for follow-up []i) Complicating features requiring inpatient care manageable at a lower level of care(37) []j) Comorbid conditions manageable at a lower level of care(37) The original [employer] content created by [employer] has been revised. The portions of the content which have been revised are identified through the use of italic text or in bold, and [facility] [employer] has neither reviewed nor approved the modified material. All other unmodified content is copyright [employer]. Please see references footnoted in the original [employer] edition 2016 Admission Criteria Met: Yes
--- NOTE | 2017-02-24 12:04 | Operative Report ---
Operative Report Operative Report: Date of procedure: 02/22/2017 Pre-operative diagnosis: Acute on Chronic Renal Failure Post-operative diagnosis: Same Procedure(s): 1. Ultrasound-Guided Access Right Internal jugular Vein 2. Placement of 19 cm GlidePath Permacath 3. Radiologic Supervision with Interpretation 4. Revision of Right Arm Arteriovenous Fistula with Interposition 8 mm Bovine Graft Surgeon: Yung Abrams MD Chemical Engineering Intern: None Anesthesia: Local EBL: Minimal Counts: Correct Complications: None Condition: Stable Findings: Successful placement of right IJ permacath. Right AV graft with excellent thrill at the end of the case. Specimen: None Indication: The patient is a 61-year-old male who presented to the emergency department with bleeding from his AV fistula. Pressure was held to stop the bleeding however this thrombosed his AV fistula. He underwent a fistulogram with thrombectomy to restore the fistula and then had primary repair of the skin ulceration to prevent bleeding. He was discharged with a plan for revision of the fistula. He was given the risk, benefits, and alternative procedures and consented to procedure. Description of Procedure: The patient was brought operating room and laid in supine position. After general endotracheal anesthesia was achieved his right neck and chest were prepped and draped in normal sterile fashion. Ultrasound was used to identify the right internal jugular vein and the overlying skin and soft tissue was anesthetized with lidocaine. A small stab incision was made and then the access needle was used ultrasound guidance in the right internal jugular vein. An 035 J-wire was advanced to the central venous system under fluoroscopic guidance. The tract was serially dilated up to a 16 Serbian peel-away safety sheath and the inner cannula and wire removed. An exit site on the chest was then chosen and the presumed tunnel was anesthetized with lidocaine. A small stab incision was made on the chest and then the permacath was connected to the tunneler and pulled antegrade through the tunnel. The catheter was inserted into the safe sheath and safety sheath was pulled away. The catheter was positioned under fluoroscopy. Once in adequate position both ports were aspirated and flushed and then primed with the appropriate amount heparin. The neck incision was then closed with 4-0 Monocryl in interrupted subcuticular fashion and dressed with Surgicel. The catheters was dressed sterilely. Final fluoroscopy demonstrated the catheter was in excellent position without any evidence of pneumothorax. At this point the sterile field was broken and then the patient's right arm was prepped and draped in normal sterile fashion. A transverse incision was created over the arterial inflow the fistula and dissected down to a normal portion of the fistula, without evidence of pseudoaneurysm, by sharp dissection. This area of the fistula was dissected circumferentially and controlled with vessel loop. I then made a transverse incision over the fistula in the upper arm and dissected down to the venous outflow of the fistula, without evidence of pseudoaneurysm, using sharp dissection. This portion of the vein was then dissected circumferentially and controlled the vessel loop. I then used an angled DeBakey clamp and controlled the inflow the fistula. I then suture ligated and divide the fistula and beveled the arterial inflow portion. I used the Lupis with tunneler to tunnel the 8 mm graft medial to his previous fistula. I infused heparinized saline to assure that it was not twisted or kinked. I then created and an anastomosis between the bovine graft and the inflow if his previous fistula using 2 6-0 Prolene as a running fashion. I then removed the clamp from the fistula and place it on the graft just distal to the anastomosis. Hemostasis at the anastomosis was achieved with 6-0 Prolene in interrupted fashion as well as quick clot. I then assisted DeBakey clamp to control the venous outflow of the fistula. I divided the fistula and expressed all the remaining blood out of the areas of pseudoaneurysm and then suture ligated the midsection of the fistula. I beveled the remaining portion of the fistula for the venous outflow and then cut my bovine graft to length. I beveled the end of the graft and created an end-to-end anastomosis using 2 6-0 Prolenes in running fashion. After completing the anastomosis and released all clamps allowing flow through the graft which had an excellent thrill. Hemostasis within the wound was achieved with quick clot. Once hemostasis was achieved both wounds were anesthetized with Marcaine and closed in 2 layers using a 3-0 Vicryl and running fashion and the deep dermal layer and a 4-0 Monocryl in running fashion and the subcuticular layer. Both wounds were then dressed with Dermabond. The patient tolerated the procedure well, all sponge needle and instrument counts were correct, the patient was taken to recovery in stable condition.
== END 2017-02-22 06:15 | disposition home or self-care (01) ==
LOC: OR 06:14
PROVIDERS: ATTEND Surgery Vascular Surgery
DX: I12.0 Hypertensive chronic kidney disease with stage 5 chronic kidney disease or end stage renal disease (principal); N18.6 End stage renal disease; N17.9 Acute kidney failure, unspecified; Z99.2 Dependence on renal dialysis; Z79.899 Other long term (current) drug therapy
CPT/HCPCS: 36415; 36558; 36832; 77001; 82962; 84132; J0690; J1170; J1644; J2250; J2370; J2405; J2704; J3490; J7030; J7040; C1750; C1768